=== PATIENT | male | born 1965 | race Caucasian/White ===

== ENCOUNTER → 2016-09-25 | Outpatient (CLI) | payer OTHER ==
--- NOTE | 2016-09-25 13:06 | MR ---
EXAMINATION TYPE: MR lumbar spine wo con DATE OF EXAM: 09/25/2016 8:35 AM COMPARISON: Prior MRI unavailable for comparison HISTORY: LBP into rt buttock x 25 years, no trauma/surgery TECHNIQUE: Multiplanar, multisequence images of the lumbar spine were acquired. T11-12 and T12-L1 show some loss of disc height and signal. T11-12 show some circumferential disc bul ge causing mild anterior mass effect on the thecal sac, foraminal encroachment, there is associated f acet arthropathy. L1-L2: Normal disc appearance without desiccation. No herniation, protrusion or disc bulging. No ca nal stenosis is present. Loss of disc height and signal due to disc desiccation and degenerative disc disease. Foramina are patent bilaterally. L2-L3: Normal disc appearance without desiccation. No herniation, protrusion or disc bulging. No ca nal stenosis is present. Loss of disc height and signal compatible with disc desiccation, degenerati ve disc disease. Foramina are patent bilaterally. L3-L4: Broad-based posterior disc bulge causes only minimal anterior mass effect on the thecal sac. N o significant central stenosis or foraminal encroachment. Spondylosis is noted. L4-L5: Circumferential extension of endplate disc complex causes bilateral foraminal encroachment, th ere is mild anterior mass effect on the thecal sac. Facet arthropathy changes present. There is some encroachment on the lateral recess on the right. No significant central stenosis. There is loss of di sc height and signal, there is endplate discogenic marrow signal change, spondylosis. L5-S1: There is loss of disc height and signal. Spondylosis is present, circumferential extension of endplate disc complex may contact the anterior thecal sac. Facet arthropathy changes present. Circumf erential extension causes bilateral foraminal encroachment. No significant central canal stenosis. Lumbar segments are intact. No paraspinal masses are identified. Conus medullaris has a normal appe arance. IMPRESSION: Degenerative disc disease and facet arthropathy. Multilevel foraminal encroachment.
== END | disposition home or self-care (01) ==
LOC: RADMRIMAIN 08:01
PROVIDERS: ATTEND Physician Assistant
DX: M51.36 Other intervertebral disc degeneration, lumbar region (principal); M46.96 Unspecified inflammatory spondylopathy, lumbar region
CPT/HCPCS: 72148